=== PATIENT | female | born 1970 | race Caucasian/White ===

== ENCOUNTER 2019-06-21 21:48 | Emergency (ER) | payer OTHER ==
[~2019-06-21] VITALS: Ht 152.4 cm; Wt 61.2 kg
[2019-06-21 21:56] VITALS: BP 102/75
--- NOTE | 2019-06-21 21:58 | NUR ---
to lobby a/w bed ambulatory
--- NOTE | 2019-06-21 22:00 | NUR ---
49 Y/O FEMALE PRESENTS TO ED, C/O ABDOMINAL ACHING PAIN 04/15. PT STATES SHE'S BEEN HAVING THE PAIN SINCE YESTERDAY. BS ACTIVE ON ALL QUADRANTS. LAST BM WAS THIS MORNING. DENIES ANY PAIN VOIDING. ABD IS SOFT AND TENDER TO TOUCH. PT HAS HX OF FIBROMYALGIA. PT VSS. ERMD AWARE. WILL COTINUE TO MONITOR.
[2019-06-21] MEDS ORDERED: ALUMINUM HYD/MAG/SIMETHICONE 30 ML UDC PO ONE (22:55)
[2019-06-21] MEDS ORDERED: LIDOCAINE VISCOUS 2% 20 ML UDC PO ONE (22:55)
[2019-06-21] MEDS ORDERED: KETOROLAC 30 MG/ML VIAL IM ONE (22:55)
[2019-06-21] MEDS ORDERED: DICYCLOMINE HCL LIQUID 10 MG/5 ML UDC PO ONE (22:55)
[2019-06-21 23:28] LABS: BASOPHILS % (AUTO) 0.7 % (0.0-2.0); EOSINOPHILS # (AUTO) 0.2 K/uL (0-0.4); EOSINOPHILS % (AUTO) 3.4 % (0.0-4.0); HEMATOCRIT 36.3 % (36-48); HEMOGLOBIN 12.5 g/dL (12.0-16.0); LYMPHOCYTES # (AUTO) 1.9 K/uL (2.5-16.5); LYMPHOCYTES % (AUTO) 29.3 % (20.5-51.1); MEAN CORPUSCULAR HEMOGLOBIN 30 pg (27-31); MEAN CORPUSCULAR HGB CONC 34 g/dL (33-37); MEAN CORPUSCULAR VOLUME 88.2 fL (80-94); MONOCYTES # (AUTO) 0.3 K/uL (0.8-1.0); NEUTROPHILS % (AUTO) 61.6 % (42.2-75.2); PLATELET COUNT (AUTO) 237 K/uL (140-450); RED BLOOD CELL COUNT(AUTO) 4.12 MIL/uL (4.20-5.40); RED CELL DISTRIBUTION WIDTH 14.1 % (11.6-13.7); WHITE BLOOD COUNT (AUTO) 6.5 K/uL (4.8-10.8)
[2019-06-21 23:38] LABS: ANION GAP 11.3 (8-16); CARBON DIOXIDE 28.7 mmol/L (21-32); CREATININE 0.8 mg/dL (0.6-1.3)
[2019-06-21 23:43] LABS: ALBUMIN 4.2 g/dL (3.4-5.0); TOTAL BILIRUBIN 0.3 mg/dL (0.0-1.0)
--- NOTE | 2019-06-22 00:03 | NUR ---
DR. MCCOY AT PATIENTS BEDSIDE
[2019-06-22 00:08] VITALS: BP 102/75
--- NOTE | 2019-06-22 00:08 | NUR ---
PT DISCHARGED WITH PAPERWORK. RX TRAMADOL, OMEPRAZOLE. EDUCATED PT REGARDING MEDICATION AND S/E. EDUCATED PT REGARDING DISCHARGE DIAGNOSIS. PT VERBALIZED UNDERSTANDING OF TEACHING. TOLD PT TO FOLLOW UP WITH PCP AND WHEN TO RETURN TO ED. PT VSS. ALL QUESTIONS ANSWERED.
== END 2019-06-22 00:08 | disposition home or self-care (01) ==
LOC: MED 21:48
DX: K29.70 Gastritis, unspecified, without bleeding (principal)
CPT/HCPCS: 36415; 74022; 80053; 81002; 81025; 85025; 96372; 99284; J1885

== ENCOUNTER 2023-05-15 09:39 | Emergency (ER) | payer OTHER ==
[~2023-05-15] VITALS: Ht 157.5 cm; Wt 86.2 kg
[2023-05-15 09:51] VITALS: BP 119/73; PULSE 101; RESP 18; TEMP 98.1; O2SAT 98
--- NOTE | 2023-05-15 10:17 | NUR ---
PT AWAITING TO BE SEEN BY .
--- NOTE | 2023-05-15 10:24 | NUR ---
PT NO LONGER WOULD LIKE TO BE SEEN. PT STATED, "I CALLED MY DOCTOR AND SHE CALLED IN A RX AND I NO LONGER NEED TO BE SEEN." PT LEFT BEFORE BEING SEEN BY MD.
== END 2023-05-15 10:24 | disposition left against medical advice (07) ==
LOC: MED 09:39
DX: M54.9 Dorsalgia, unspecified (principal); R50.9 Fever, unspecified; Z53.21 Procedure and treatment not carried out due to patient leaving prior to being seen by health care provider
CPT/HCPCS: 99281